=== PATIENT | female | born 1960 | race Caucasian/White ===

== ENCOUNTER 2018-12-07 12:09 | Inpatient (IN) ==
[2018-12-07] MEDS ORDERED: NS 1000 ML 1,000 ML IV ONE (12:52)
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
[2018-12-07] MEDS ORDERED: NORVASC TAB 5 MG PO ONE (12:59)
[2018-12-07] MEDS ORDERED: NS 1000 ML 1,000 ML ONE ×2 (12:59→14:45)
[2018-12-07 13:05] LABS: BASOPHILS % (AUTO) 0.3 % (0.2-1.0); EOSINOPHILS # (AUTO) 0.1 x10^3/uL (0.0-0.2); EOSINOPHILS % (AUTO) 1.2 % (0.9-2.9); HEMOGLOBIN 14.1 g/dL (12.0-16.0); LYMPHOCYTES # (AUTO) 0.7 X10^3/uL (1.3-2.9); LYMPHOCYTES % (AUTO) 6.4 % (21.0-51.0); MEAN CORPUSCULAR HEMOGLOBIN 28.6 pg (27.0-34.0); MEAN CORPUSCULAR HGB CONC 34.4 g/dL (33.0-35.0); MEAN CORPUSCULAR VOLUME 83.2 fL (80.0-100.0); MEAN PLATELET VOLUME 8.3 fL (7.4-11.0); MONOCYTES # (AUTO) 0.5 x10^3/uL (0.3-0.8); MONOCYTES % (AUTO) 4.7 % (0.0-13.0); NEUTROPHILS # (AUTO) 9.4 x10^3/uL (2.2-4.8); NEUTROPHILS % (AUTO) 87.4 % (42.0-75.0); PLATELET COUNT 303 X10^3/uL (150.0-450.0); RED BLOOD COUNT 4.93 X10^6/uL (3.5-5.4); RED CELL DISTRIBUTION WIDTH 14.2 % (11.6-16.5); WHITE BLOOD COUNT 10.8 X10^3/uL (3.6-10.0)
[2018-12-07 13:17] LABS: ALANINE AMINOTRANSFERASE 20 Units/L (12-78); ALBUMIN 3.7 g/dL (3.4-5.0); ALKALINE PHOSPHATASE 107 Units/L (46-116); ASPARTATE AMINO TRANSFERASE 16 Units/L (15-37); BLOOD UREA NITROGEN 15 mg/dL (7-18); CALCIUM 8.9 mg/dL (8.5-10.1); CARBON DIOXIDE 29.4 mmol/L (21-32); CHLORIDE 102 mmol/L (98-107); COR NA(FOR HYPERGLY) 138 mmol/L (136-145); CREATININE 0.83 mg/dL (0.55-1.02); SODIUM 138 mmol/L (136-145); TOTAL PROTEIN 7.8 g/dL (6.4-8.2); eGFR NON BLACK RACES > 60 (>60)
[2018-12-07] MEDS: NORMODYNE INJ 20 MG VIAL IVP PRN ×2 (13:37→14:00)
[2018-12-07 14:20] LABS: CKMB % 1.4 % (<4); CREATINE KINASE 70 Units/L (26-192); CREATINE KINASE MB < 1.0 ng/mL (0-4.0); TROPONIN I 0.15 ng/mL (0-1.5)
[2018-12-07] MEDS ORDERED: MORPHINE SULFATE INJ 4 MG ONE (14:26)
[2018-12-07] MEDS ORDERED: ZOFRAN INJ 4 MG VIAL ONE (14:32)
[2018-12-07] MEDS ORDERED: ZOFRAN INJ 4 MG VIAL IVP ONE (14:38)
[2018-12-07] MEDS ORDERED: MORPHINE SULFATE INJ 4 MG IVP ONE (14:38)
[2018-12-07 14:43] LABS: BILIRUBIN,URINE NEGATIVE (NEGATIVE); BLOOD/HEMOGLOBIN,URINE 2+ (NEGATIVE); GLUCOSE, URINE NEGATIVE (NEGATIVE); KETONES,URINE NEGATIVE (NEGATIVE); LEUKOCYTE ESTERASE ,URINE NEGATIVE (NEGATIVE); NITRITES,URINE NEGATIVE (NEGATIVE); PROTEIN,URINE 2+ (NEGATIVE); UROBILINOGEN,URINE NORMAL (NORMAL)
--- NOTE | 2018-12-07 14:57 | RAD ---
HISTORY: Chest pain, dizziness Study: Chest AP portable Comparison: None Findings: The heart is mildly enlarged. No congestive heart failure is noted. No acute infiltrates or pleural effusions are identified. The bony thorax is unremarkable. IMPRESSION: Mild cardiomegaly without congestive heart failure No infiltrates Reported By:
[2018-12-07] MEDS ORDERED: CARDIZEM INJ 125 MG VIAL 125 MG in NS 100 ML IV 100 ML IV PRN (15:09)
[2018-12-07 15:15] LABS: APPEARANCE,URINE CLEAR (CLEAR); BACTERIA,URINE NEGATIVE /HPF (NEGATIVE); COLOR,URINE YELLOW (YELLOW); RBC,URINE 0-2 /HPF (NONE SEEN); SQUAMOUS EPITHELIAL CELL,UR RARE /HPF (NEGATIVE)
[2018-12-07] MEDS: CARDIZEM INJ 125 MG VIAL 125 MG in NS 100 ML IV 100 ML IV PRN ×3 (15:28→17:53)
--- NOTE | 2018-12-07 15:44 | CT ---
HISTORY: Headache, hypertension Study: CT brain without contrast Comparison: None Technique: Multiple axial images of the brain were obtained from the skull base to the vertex without administration of IV contrast. Findings: No acute intraparenchymal hemorrhage or mass can be identified. No extra-axial fluid collections are seen. No alteration in the attenuation of the brain parenchyma can be identified to suggest acute or subacute ischemic change. The ventricles, sulci, and cisterns demonstrate an appearance consistent with a mild degree of generalized atrophy. Patchy and confluent areas of decreased attenuation within the periventricular, subcortical, and subinsular white matter suggest changes of chronic small vessel ischemic disease. If symptoms or clinical concern persist recommend continued follow-up for further evaluation. IMPRESSION: No acute intracranial process can be identified. Mild generalized atrophy with findings consistent with changes of chronic small vessel ischemic disease. Reported By:
[2018-12-07] MEDS ORDERED: NITROGLYCERIN IV PREMIX 50 MG 50 MG/250 ML BAG IV PRN (17:22)
[2018-12-07 17:33] LABS: CKMB % 1.6 % (<4); CREATINE KINASE 63 Units/L (26-192); CREATINE KINASE MB < 1.0 ng/mL (0-4.0); TROPONIN I 0.15 ng/mL (0-1.5)
[2018-12-07] MEDS ORDERED: NITROPRESS 50 MG in D5W 250 ML IV 250 ML IV PRN (17:43)
[2018-12-07] MEDS ORDERED: PHENERGAN INJ 25 MG IVP ONE (18:00)
[2018-12-07] MEDS ORDERED: NS 1000 ML 1,000 ML IV SCH (18:00)
[2018-12-07] MEDS ORDERED: PHENERGAN INJ 25 MG ONE (18:06)
[2018-12-07] MEDS ORDERED: BENICAR TAB 40 MG PO ONE ×2 (20:10→20:12)
[2018-12-07] MEDS ORDERED: TOPROL XL PO ONE ×2 (20:10)
[2018-12-07] MEDS ORDERED: MAALOX or MYLANTA PO PRN (23:23)
[2018-12-07] MEDS: PEPCID TAB 20 MG PO SCH (23:38)
[2018-12-07] MEDS: MORPHINE SULFATE INJ 2 MG INJ IVP PRN (23:56)
[2018-12-08] MEDS: MORPHINE SULFATE INJ 2 MG INJ IVP PRN ×2 (05:28→09:11)
[2018-12-08 06:18] LABS: BASOPHILS % (AUTO) 0.2 % (0.2-1.0); HEMATOCRIT 37.8 % (36.0-47.0); LYMPHOCYTES # (AUTO) 0.6 X10^3/uL (1.3-2.9); LYMPHOCYTES % (AUTO) 6.8 % (21.0-51.0); MEAN CORPUSCULAR HEMOGLOBIN 28.5 pg (27.0-34.0); MEAN CORPUSCULAR HGB CONC 34.4 g/dL (33.0-35.0); MEAN CORPUSCULAR VOLUME 83.1 fL (80.0-100.0); MONOCYTES # (AUTO) 0.3 x10^3/uL (0.3-0.8); MONOCYTES % (AUTO) 3.9 % (0.0-13.0); NEUTROPHILS # (AUTO) 7.4 x10^3/uL (2.2-4.8); NEUTROPHILS % (AUTO) 89.1 % (42.0-75.0); PLATELET COUNT 300 X10^3/uL (150.0-450.0); RED BLOOD COUNT 4.55 X10^6/uL (3.5-5.4); RED CELL DISTRIBUTION WIDTH 14.1 % (11.6-16.5); WHITE BLOOD COUNT 8.3 X10^3/uL (3.6-10.0)
[2018-12-08 06:38] LABS: ALANINE AMINOTRANSFERASE 19 Units/L (12-78); ALBUMIN 3.4 g/dL (3.4-5.0); ALKALINE PHOSPHATASE 97 Units/L (46-116); ASPARTATE AMINO TRANSFERASE 14 Units/L (15-37); BLOOD UREA NITROGEN 8 mg/dL (7-18); CALCIUM 8.4 mg/dL (8.5-10.1); CARBON DIOXIDE 28.3 mmol/L (21-32); CHLORIDE 99 mmol/L (98-107); CKMB % 1.6 % (<4); COR NA(FOR HYPERGLY) 136 mmol/L (136-145); CREATINE KINASE 62 Units/L (26-192); CREATINE KINASE MB < 1.0 ng/mL (0-4.0); CREATININE 0.66 mg/dL (0.55-1.02); MAGNESIUM 1.9 mg/dL (1.7-2.9); SODIUM 135 mmol/L (136-145); TOTAL PROTEIN 7.6 g/dL (6.4-8.2); TROPONIN I 0.12 ng/mL (0-1.5); eGFR NON BLACK RACES > 60 (>60)
[2018-12-08 06:43] VITALS: BMI 41.0
[2018-12-08] MEDS ORDERED: TOPROL XL PO ONE (08:17)
[2018-12-08] MEDS ORDERED: NORVASC TAB 10 MG ONE (08:35)
[2018-12-08] MEDS ORDERED: APRESOLINE TAB 25 MG ONE (08:35)
[2018-12-08] MEDS: NORVASC TAB 10 MG PO SCH (08:53)
[2018-12-08] MEDS: BENICAR TAB 40 MG PO SCH (08:54)
[2018-12-08] MEDS: APRESOLINE TAB 25 MG PO SCH ×3 (08:54→21:00)
[2018-12-08] MEDS: TOPROL XL PO SCH (08:54)
[2018-12-08] MEDS: PEPCID TAB 20 MG PO SCH ×2 (09:10→20:00)
[2018-12-08] MEDS: TYLENOL 325 MG TAB PO PRN ×2 (10:30→19:04)
[2018-12-09] MEDS: TYLENOL 325 MG TAB PO PRN (04:17)
[2018-12-09] MEDS: APRESOLINE TAB 25 MG PO SCH (05:47)
[2018-12-09 05:59] LABS: BASOPHILS % (AUTO) 0.4 % (0.2-1.0); EOSINOPHILS # (AUTO) 0.1 x10^3/uL (0.0-0.2); EOSINOPHILS % (AUTO) 1.4 % (0.9-2.9); HEMATOCRIT 38.7 % (36.0-47.0); LYMPHOCYTES # (AUTO) 1.7 X10^3/uL (1.3-2.9); MEAN CORPUSCULAR HEMOGLOBIN 28.3 pg (27.0-34.0); MEAN CORPUSCULAR HGB CONC 33.5 g/dL (33.0-35.0); MEAN CORPUSCULAR VOLUME 84.3 fL (80.0-100.0); MEAN PLATELET VOLUME 8.8 fL (7.4-11.0); MONOCYTES # (AUTO) 0.7 x10^3/uL (0.3-0.8); MONOCYTES % (AUTO) 9.7 % (0.0-13.0); NEUTROPHILS # (AUTO) 4.4 x10^3/uL (2.2-4.8); NEUTROPHILS % (AUTO) 63.5 % (42.0-75.0); PLATELET COUNT 296 X10^3/uL (150.0-450.0); RED BLOOD COUNT 4.59 X10^6/uL (3.5-5.4); RED CELL DISTRIBUTION WIDTH 14.4 % (11.6-16.5); WHITE BLOOD COUNT 6.9 X10^3/uL (3.6-10.0)
[2018-12-09 06:09] LABS: ALANINE AMINOTRANSFERASE 19 Units/L (12-78); ALBUMIN 3.1 g/dL (3.4-5.0); ALKALINE PHOSPHATASE 87 Units/L (46-116); ASPARTATE AMINO TRANSFERASE 14 Units/L (15-37); BLOOD UREA NITROGEN 15 mg/dL (7-18); CALCIUM 8.7 mg/dL (8.5-10.1); CARBON DIOXIDE 27.2 mmol/L (21-32); CHLORIDE 103 mmol/L (98-107); COR CA(FOR HYPOALB) 9.4 mg/dL (8.5-10.1); CREATININE 0.81 mg/dL (0.55-1.02); SODIUM 138 mmol/L (136-145); TOTAL PROTEIN 6.9 g/dL (6.4-8.2); eGFR NON BLACK RACES > 60 (>60)
[2018-12-09] MEDS ORDERED: K-DUR TAB 20 MEQ PO PRN (06:21)
[2018-12-09] MEDS ORDERED: MICRO K EXTEN CAP 10 MEQ PO PRN (06:21)
[2018-12-09] MEDS ORDERED: POTASSIUM CHL 40 MEQ/NS 0.45% 500 ML IV PRN (06:21)
[2018-12-09] MEDS ORDERED: POTASSIUM CHL 60 MEQ/NS 0.45% 500 ML IV PRN (06:21)
[2018-12-09] MEDS ORDERED: KLOR-CON PO PRN (06:21)
[2018-12-09] MEDS ORDERED: POTASSIUM CHLORIDE LIQ 20 MEQ UDC PO PRN (06:21)
[2018-12-09] MEDS ORDERED: K-RIDER 10 MEQ/NS 100 ML 10 MEQ/100 ML BAG IV PRN (06:21)
[2018-12-09] MEDS ORDERED: TOPROL XL PO ONE (09:26)
[2018-12-09] MEDS: PEPCID TAB 20 MG PO SCH (09:37)
[2018-12-09] MEDS: TOPROL XL PO SCH (09:37)
[2018-12-09] MEDS: BENICAR TAB 40 MG PO SCH (09:37)
[2018-12-09] MEDS: NORVASC TAB 10 MG PO SCH (09:38)
[2018-12-09 12:52] VITALS: BP 126/60
== END 2018-12-09 14:30 | disposition home or self-care (01) | DRG 305 ==
LOC: ER 12:09 → ICU 17:31
PROVIDERS: ADMIT Obstetrics & Gynecology Obstetrics; ATTEND Obstetrics & Gynecology Obstetrics
DX: J30.89 Other allergic rhinitis; J32.8 Other chronic sinusitis; R42 Dizziness and giddiness; E86.0 Dehydration; E87.6 Hypokalemia; I16.0 Hypertensive urgency; R19.7 Diarrhea, unspecified; I10 Essential (primary) hypertension; R52 Pain, unspecified; R11.2 Nausea with vomiting, unspecified; R53.1 Weakness; R94.31 Abnormal electrocardiogram [ECG] [EKG]
CPT/HCPCS: 36415; 70450; 71010; 71045; 80053; 81001; 82550; 82553; 83036; 83735; 84132; 84484; 85025; 85610; 85730; 86140; 87502; 93005; 96365; 96367; 96374; 96375; 99282; 99285; A4222; J2270; J2405; J2550; J3490; J7030; J7050